=== PATIENT | female | born 1955 | race Caucasian/White ===

== ENCOUNTER 2022-03-19 09:01 | Outpatient (CLI) | payer MEDICARE | END 2022-03-19 09:02 | disposition home or self-care (01) | LOC: BICMAMMO 09:01 | PROVIDERS: ATTEND Family Medicine Sports Medicine | DX: R92.8 Other abnormal and inconclusive findings on diagnostic imaging of breast (principal); N64.89 Other specified disorders of breast | CPT/HCPCS: 77065; G0279 ==